=== PATIENT | male | born 1945 | race Caucasian/White ===

== ENCOUNTER 2021-09-09 11:43 | Inpatient (IN) ==
--- NOTE | 2021-09-09 12:30 | XRay Report ---
CLINICAL INFORMATION: Trauma COMPARISON: None. TECHNIQUE: PA and Lateral views FINDINGS: The heart size, mediastinum and pulmonary vessels are unremarkable. COPD noted with minor bibasilar fibrosis or atelectasis. There are no effusions. The bones and soft tissues are within normal limits. IMPRESSION: COPD. No acute posttraumatic change Interpreted and Authenticated by: Schuyler Mejia 09/09/21
--- NOTE | 2021-09-09 12:32 | XRay Report ---
CLINICAL INFORMATION: COMPARISON: None. FINDINGS: Mildly comminuted acute intertrochanteric fracture right hip is appreciated. Distal femoral metaphyseal fragment displaced 5 mm anteriorly with respect to the femoral neck. Mild degenerative change seen in both hips with chondrocalcinosis in the femoral head cartilages. SI joints show mild degeneration. Soft tissues show mild ileus pattern. Soft tissue swelling over the fracture site appreciated. IMPRESSION: Mildly displaced acute intertrochanteric fracture of the right hip. Chondrocalcinosis of both femoral head cartilages. Interpreted and Authenticated by: Schuyler Mejia 09/09/21
[2021-09-09 12:33] LABS: Basophils # (Auto) 0.04 K/mcL (0.00-0.30); Basophils % (Auto) 0.3 % (0.0-2.0); Eosinophils # (Auto) 0.01 K/mcL (0.00-0.70); Eosinophils % (Auto) 0.1 % (0.0-7.0); Hematocrit 34.5 % (40.1-51.0); Hemoglobin 12.3 g/dL (13.7-17.5); Lymphocytes # (Auto) 0.97 K/mcL (1.50-4.80); Lymphocytes % (Auto) 6.4 % (15.5-49.0); Mean Corpuscular HGB Conc 35.7 g/dL (31.0-36.0); Mean Platelet Volume 9.6 fL (7.4-10.4); Monocytes # (Auto) 1.27 K/mcL (0.10-0.90); Monocytes % (Auto) 8.3 % (1.0-12.0); Neutrophils % (Auto) 84.9 % (38.0-78.0); Platelet Count 375 K/mcL (140-440); RBC 3.71 M/mcL (4.63-6.08); Red Cell Distribution Width 12.6 % (11.5-14.5); WBC 15.3 K/mcL (4.5-11.0)
--- NOTE | 2021-09-09 12:51 | Emergency Department Note ---
Lower Extremity Injury HPI General Chief Complaint: Extremity Injury, Lower Stated Complaint: right hip pain, fell out of chair 6 days ago Time Seen by Provider: 09/09/21 11:56 Source: patient and EMS Mode of arrival: EMS History of Present Illness HPI Narrative: Narrative: 75-year-old male presents the emergency department complaining of right hip pain. Patient states that 6 days ago he was getting out of chair and said he lost his balance and fell said it was a mechanical fall as he tripped on some fell onto his right hip was able to get himself and back in the chair but has not moved since. He states he has been having family bring him food but otherwise has had a hard time caring for himself. He states that he has been doing with the pain hoping it would heal on its own but today the pain just got worse so decided to come here via ambulance. He did receive fentanyl by EMS for pain control which did seem to help. He did not is denying any other symptoms he did not hit his head did not lose consciousness remembers the entire event. Related Data Allergies Allergy/AdvReac Type Severity Reaction Status Date / Time No Known Drug Allergies Allergy Unverified 02/12/18 23:21 Review of Systems ROS ROS Narrative: Narrative: All systems ED: reviewed and negative except as stated. [facility] Narrative Patient History Narrative: Narrative: Medical/Surgical/Family History All Active Problems (Updated 09/09/21 @ 12:51 by Kenyon Mcnulty DO) Alcohol intoxication (Acute) Closed intertrochanteric fracture of right femur (Acute) Social History Smoking Status: Current every day smoker Exam Narrative Narrative: Narrative: Vital signs noted General: Awake. Alert. No distress. Skin: Warm. Dry. No rash. HEENT: NCAT. PERRL. EOMI. No conjunctivitis. No nystagmus. No pharyngitis. Membranes moist. Neck: No PTP. Good ROM. No meningeal signs. No stridor. No thyromegaly. No JVD. Cardiovascular: RRR. No murmur. No rubs. No gallops. Respiratory: No respiratory distress. Breath sounds equal. Lungs clear. Gastrointestinal: Abdomen soft. No tenderness. No distention. Normal bowel sounds. No palpable organomegaly or masses. Back: No deformity. No CVAT. Musculoskeletal: Pain with palpation to the right hip he has 2+ pedal pulses bilaterally with normal sensation throughout. No tenderness. No swelling. No erythema. No edema. Good peripheral pulses x 4 Lymphatic: No palpable adenopathy. Neurological: No focal neurological deficits observed. Course Vital Signs Vital signs: Vital Signs Temperature 98.2 F 09/09/21 11:49 Pulse Rate 90 09/09/21 11:49 Respiratory Rate 20 09/09/21 11:49 Blood Pressure 198/66 09/09/21 11:49 Pulse Oximetry (%) 88 L 09/09/21 11:49 Temperature 98.2 F 09/09/21 11:49 Pulse Rate 89 09/09/21 12:35 Respiratory Rate 20 09/09/21 11:49 Blood Pressure 161/82 09/09/21 12:32 Pulse Oximetry (%) 99 09/09/21 12:35 [facility] MDM Narrative Medical decision making narrative: Narrative: Patient seen as he did have a fall 6 days ago. There is no reason to do further advanced imaging of the brain and the head as he states been doing well sent did not hit his head did not lose consciousness. Pain is well controlled the fe ntanyl that EMS gave. X-ray was done of the right hip does show an intertrochanteric right femur fracture. I spoke with Dr. Vidal the orthopedic surgeon who recommends admission to the hospitalist and he will see the patient in consultation do surgery possibly later today. Because he was sitting down I went ahead and did get a CK which is still pending as well as basic labs for admission. Patient will be admitted to the hospitalist service with Dr. Vidal seeing the patient in consultation. Lab Data Result diagrams: 09/09/21 11:58 09/09/21 11:58 Labs: Lab Results 09/09/21 Range/Units 11:58 WBC 15.3 H (4.5-11.0) K/mcL RBC 3.71 L (4.63-6.08) M/mcL Hgb 12.3 L (13.7-17.5) g/dL Hct 34.5 L (40.1-51.0) % MCV 93.0 (80.0-100.0) fL MCH 33.2 (26.0-34.0) pg MCHC 35.7 (31.0-36.0) g/dL RDW 12.6 (11.5-14.5) % Plt Count 375 (140-440) K/mcL MPV 9.6 (7.4-10.4) fL Neut % (Auto) 84.9 H (38.0-78.0) % Lymph % (Auto) 6.4 L (15.5-49.0) % Cole % (Auto) 8.3 (1.0-12.0) % Eos % (Auto) 0.1 (0.0-7.0) % Baso % (Auto) 0.3 (0.0-2.0) % Lymph # (Auto) 0.97 L (1.50-4.80) K/mcL Cole # (Auto) 1.27 H (0.10-0.90) K/mcL Eos # (Auto) 0.01 (0.00-0.70) K/mcL Baso # (Auto) 0.04 (0.00-0.30) K/mcL Absolute Neutrophils 12.96 H (1.80-8.00) K/mcL ED POC Tests ED POC Tests: AMINA - SARS Antigen Negative Discharge Plan Patient/Caregiver Discharge Instructions Pt seen by AIRCRAFT ENGINE MECHANIC SUPERVISOR/PA only: No Clinical Impression: Closed intertrochanteric fracture of right femur Patient Disposition: Xfer As Inpt ([facility]) Condition: Fair
[2021-09-09 12:54] LABS: Blood Urea Nitrogen 17 mg/dL (8-23); Calcium 8.9 mg/dL (8.6-10.4); Carbon Dioxide 30 mmol/L (22-30); Chloride 92 mmol/L (96-108); Creatine Kinase 260 U/L (24-195); Glomerular Filtration Rate 99; Glucose 122 mg/dL (70-105)
[2021-09-09] MEDS ORDERED: HYDROmorphone 1 MG/ML SYRINGE IV PRN ×2 (14:27→15:42)
[2021-09-09] MEDS ORDERED: ceFAZolin 2 GM in DEXTROSE 5% IN WATER 50 ML IV SCH ×2 (14:30→18:15)
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
[2021-09-09] MEDS ORDERED: ACETAMINOPHEN 325 MG TABLET PO PRN (15:42)
[2021-09-09] MEDS ORDERED: ONDANSETRON 4 MG/2 ML VIAL IV PRN ×2 (15:42→17:41)
[2021-09-09] MEDS ORDERED: ZOLPIDEM 5 MG TABLET PO PRN (15:42)
[2021-09-09] MEDS ORDERED: IPRATROPIUM/ALBUTEROL 3 ML AMPUL.NEB NEB PRN ×2 (15:42→17:41)
[2021-09-09] MEDS: 0.9 % SODIUM CHLORIDE 1,000 ML IV SCH (15:47)
[2021-09-09] MEDS ORDERED: SCOPOLAMINE 1 PATCH PATCH TOPICAL PRN (16:27)
--- NOTE | 2021-09-09 17:00 | Orthopedic Consult Note ---
HPI Data of Consult Consult date: 09/09/21 Consult Narrative Patient Information: Note initiated : 09/09/21 at 4:53 pm Service Date, if different from initiated Date: [] Patient: Shubham Alcazar a 75 y/o M admitted on 09/09/21 for right hip pain, fell o ut of chair 6 days ago. Chief Complaint: [right Hip pain status post fall] Mr. Alcazar is a 75 year old Male who suffered a ground level mechanical fall 6 days ago was when he was trying to lock his front door, his right leg just gave out and he fell. He denies any loss of consciousness. He denies any chest pain or palpitations. He denies any lightheadedness or confusions. He denies any shortness of breath. His family is set him up on the chair but he was unable to get up from the chair in the past 6 days so he did all his daily activities including urination and defecation's on the chair. His family finally called EMS to send the patient to our ER for further evaluations. Hip x-ray showing mildly displaced acute intertrochanteric fracture of the right hip. He is complaining of 10 out of 10 sharp pain of the right thigh with radiations to his entire right lower extremities. Chief complaint: Right hip pain status post fall cc:: CC: Clinton Mcrae MD Review of Systems All systems: reviewed and no additional remarkable complaints except as stated PFSH PFSH All Active Problems Anemia, normocytic normochromic (Acute) Alcohol intoxication (Acute) Closed intertrochanteric fracture of right femur (Acute) MEDS/ALLERGIES Home Medications and Allergies Home Medications Medication Instructions Recorded Confirmed Type nitroglycerin 0.4 mg sublingual 0.4 mg SUBLINGUAL Q15MIN PRN 09/09/21 09/09/21 History tablet Allergies Allergy/AdvReac Type Severity Reaction Status Date / Time No Known Drug Allergies Allergy Unverified 02/12/18 23:21 Physical Examination Narrative Narrative: Narrative: A/P Narrative A/P Narrative: On exam patient is seated in bed in no acute distress lungs are equal clear bilaterally heart normal rate and rhythm. Head, neck, chest, abdomen, bilateral upper extremities and left side pelvis and lower extremity Pupils are PERRLA, mucous membranes are moist. Bilateral upper extremities nontender to palpation exhibit normal range of motion and strength of the right hip there is tenderness to palpation and with any range of motion. Options were presented to the patient including nonsurgical and surgical options nonsurgical option carries a risk of increased pain, increased risk of injury to adjacent structures including nerves and blood vessels, loss of range of motion and ambulation. Surgical option consisting of right hip TFNA hip nail. At this time patient is interested in surgery. Plan is for right hip TFNA hip nail to take place him emergently with Dr. Vidal orthopedic surgeon in [facility]. Surgical risks were Explained to the patient including but not limited to: Pain, bleeding, infection, injury to adjacent structures including nerves and blood vessels, implant failure, need for further surgery, stroke risk, cardiac complications including heart attack or WI, ulnar complications including pneumonia or pulmonary embolism, anesthesia reactions and . Patient understands these risks and wishes to proceed with surgery. Time Spent With Patient Time: Total time spent is greater than 50% in coordination of care (as documented) at patient's floor/unit and/or counseling patient:
[2021-09-09] MEDS ORDERED: MAGNESIUM SULFATE 2 GM/50 ML BAG IV ONE (17:15)
[2021-09-09] MEDS ORDERED: KETAMINE 50 MG/ML Syringe (ANEST) IV ONE (17:15)
[2021-09-09] MEDS ORDERED: PROPOFOL 200 MG/20 ML VIAL IV ONE (17:15)
[2021-09-09] MEDS ORDERED: LIDOCAINE HCL/PF 100 MG/5 ML SYRINGE IV ONE (17:15)
[2021-09-09] MEDS ORDERED: fentaNYL 100 MCG/2 ML VIAL IV ONE (17:15)
[2021-09-09] MEDS ORDERED: ONDANSETRON 4 MG/2 ML VIAL ONE (17:15)
[2021-09-09] MEDS ORDERED: DEXAMETHASONE 10 MG/ML VIAL ONE (17:15)
[2021-09-09] MEDS ORDERED: PROMETHAZINE 25 MG/ML VIAL IV PRN (17:41)
[2021-09-09] MEDS ORDERED: LACTATED RINGERS 250 ML IV PRN (17:41)
[2021-09-09] MEDS ORDERED: NALOXONE HCL 0.4 MG/ML VIAL IV PRN (17:41)
[2021-09-09] MEDS ORDERED: MEPERIDINE 25 MG/ML VIAL IV PRN (17:41)
[2021-09-09] MEDS ORDERED: diphenhydrAMINE 50 MG/ML VIAL IV PRN (17:41)
[2021-09-09] MEDS ORDERED: ACETAMINOPHEN 1,000 MG/100 ML BAG IV ONE (17:41)
[2021-09-09] MEDS ORDERED: LACTATED RINGERS 1,000 ML IV SCH (17:45)
--- NOTE | 2021-09-09 17:59 | General Surgery Procedure Note ---
Date of procedure: Note initiated : 09/09/21 at 5:56 pm Service Date, if different from initiated Date: [] Pre-op diagnosis: right hip intertrochanteric fracture Post-op diagnosis: same Procedure: right hip cephalomedullary nail Findings: IT fx Anesthesia: DALILA Surgeon: Schuyler Vidal Molten Iron Pourer: Yonis Betts Estimated blood loss: 100 Pathology: none sent Condition: stable Disposition: PACU
--- NOTE | 2021-09-09 18:01 | Discharge Plan ---
DC Instructions-General Patient Instructions Dressing Care: May shower in 2 days Discharge Plan Patient/Caregiver Discharge Instructions Activity: ambulate only with your walker and as per physical therapy Diet: Regular Diet Prescriptions: No Action nitroglycerin 0.4 mg tablet, sublingual 0.4 mg sublingual Q15MIN PRN (Reason: Chest Pain) 0RF Follow Up Plan Follow up with: Schuyler Vidal MD [Physician] - Patient Disposition: Xfer SNF Prognosis: Fair Rehab Potential: Good I certify that the patient requires SNF services: Yes Overall status at discharge: patient is progressing back to baseline Discharge Orders: Discharge Order (Routine); Ordered 09/09/21 Ordered By: Schuyler Vidal Discharge Comment: cc right hip fx s/p nail
[2021-09-09] MEDS ORDERED: BISACODYL 10 MG SUPP.RECT PR PRN (18:03)
[2021-09-09] MEDS ORDERED: POLYETHYLENE GLYCOL 3350 17 GM PACKET PO PRN (18:03)
[2021-09-09] MEDS ORDERED: TRANEXAMIC ACID 1,000 MG/10 ML VIAL IV ONE (18:03)
[2021-09-09] MEDS ORDERED: FLEETS ADULT ENEMA PR PRN (18:03)
[2021-09-09] MEDS ORDERED: MAGNESIUM HYDROXIDE 30 ML ORAL.SUSP PO PRN (18:03)
[2021-09-09] MEDS ORDERED: ONDANSETRON 4 MG ODT TABLET SL PRN (18:03)
[2021-09-09] MEDS ORDERED: BENZOCAINE/MENTHOL 1 LOZENGE PO PRN (18:03)
[2021-09-09] MEDS: fentaNYL 100 MCG/2 ML VIAL IV PRN ×2 (18:15→18:20)
--- NOTE | 2021-09-09 18:39 | XRay Report ---
CLINICAL INFORMATION: Orif of right distal femur fcracture COMPARISON: None. FINDINGS: Digital images from the OR show intertrochanteric fracture reduced in near anatomic alignment transfixed by gamma nail. Chondrocalcinosis seen in the right right femoral head cartilage. IMPRESSION: ORIF right intertrochanteric fracture near-anatomic alignment Interpreted and Authenticated by: Schuyler Mejia 09/09/21
[2021-09-09] MEDS ORDERED: TRANEXAMIC ACID 1,000 MG/10 ML VIAL ONE (18:53)
[2021-09-09] MEDS: LACTATED RINGERS 1,000 ML IV SCH (20:15)
[2021-09-09] MEDS: ASPIRIN 81 MG TAB.CHEW PO SCH (20:58)
[2021-09-09] MEDS: SENNOSIDES 1 TABLET PO SCH (20:58)
[2021-09-09] MEDS ORDERED: SENNOSIDES 1 TABLET PO SCH (21:00)
[2021-09-09] MEDS ORDERED: DOCUSATE SODIUM 100 MG CAPSULE PO SCH (21:00)
[2021-09-09] MEDS: 0.9 % SODIUM CHLORIDE 10 ML SYRINGE IV SCH (21:00)
[2021-09-09] MEDS: DOCUSATE SODIUM 100 MG CAPSULE PO SCH (21:00)
[2021-09-10] MEDS: ceFAZolin 1 GM VIAL IV SCH ×2 (00:18→09:09)
[2021-09-10] MEDS: 0.9 % SODIUM CHLORIDE 1,000 ML IV SCH (02:56)
[2021-09-10] MEDS: METHOCARBAMOL 750 MG TABLET PO PRN ×2 (03:11→19:26)
[2021-09-10] MEDS: oxyCODONE/APAP 5/325MG TABLET PO PRN (03:11)
--- NOTE | 2021-09-10 03:22 | XRay Report ---
CLINICAL INFORMATION: ORIF right intertrochanteric fracture COMPARISON: Preoperative films 09/09/2021. FINDINGS: Right intertrochanteric fractures has been reduced to anatomic alignment and transfixed by gamma nail. Chondrocalcinosis present both femoral head cartilages with mild degeneration both SI joints. Soft tissue swelling over the surgical site seen as expected.. IMPRESSION: ORIF intertrochanteric fracture right hip in anatomic alignment Interpreted and Authenticated by: Schuyler Mejia 09/10/21
[2021-09-10] MEDS: LACTATED RINGERS 1,000 ML IV SCH ×3 (04:17→17:44)
[2021-09-10] MEDS: 0.9 % SODIUM CHLORIDE 10 ML SYRINGE IV SCH ×3 (05:56→21:00)
[2021-09-10] MEDS: HYDROcodone/APAP 10/325MG TABLET PO PRN ×4 (07:13→20:57)
[2021-09-10 07:23] LABS: Basophils # (Auto) 0.02 K/mcL (0.00-0.30); Basophils % (Auto) 0.1 % (0.0-2.0); Eosinophils # (Auto) 0.01 K/mcL (0.00-0.70); Eosinophils % (Auto) 0.1 % (0.0-7.0); Hematocrit 32.2 % (40.1-51.0); Hemoglobin 10.7 g/dL (13.7-17.5); Lymphocytes # (Auto) 0.85 K/mcL (1.50-4.80); Lymphocytes % (Auto) 5.3 % (15.5-49.0); Mean Cell Volume 96.4 fL (80.0-100.0); Mean Corpuscular HGB Conc 33.2 g/dL (31.0-36.0); Monocytes # (Auto) 1.45 K/mcL (0.10-0.90); Neutrophils % (Auto) 85.5 % (38.0-78.0); Platelet Count 349 K/mcL (140-440); RBC 3.34 M/mcL (4.63-6.08); Red Cell Distribution Width 12.7 % (11.5-14.5); WBC 16.1 K/mcL (4.5-11.0)
[2021-09-10 07:53] LABS: Creatine Kinase 185 U/L (24-195)
[2021-09-10 08:01] LABS: ALT/SGPT 16 U/L (<40); AST/SGOT 24 U/L (<40); Albumin 3.5 gm/dL (3.2-5.2); Albumin/Globulin Ratio 1.3 (1.0-2.3); Alkaline Phosphatase 76 U/L (39-117); Bilirubin,Total 1.2 mg/dL (0.1-1.0); Blood Urea Nitrogen 21 mg/dL (8-23); Calcium 8.2 mg/dL (8.6-10.4); Carbon Dioxide 30 mmol/L (22-30); Chloride 88 mmol/L (96-108); Globulin 2.6 gm/dL (2.2-3.7); Glomerular Filtration Rate 93; Glucose 141 mg/dL (70-105)
--- NOTE | 2021-09-10 08:39 | Operative Note ---
DATE OF OPERATION: 09/09/2021 PREOPERATIVE DIAGNOSIS: Intertrochanteric fracture, right hip. POSTOPERATIVE DIAGNOSIS: Intertrochanteric fracture, right hip. PROCEDURE: Right hip cephalomedullary nailing. SURGEON: Schuyler Vidal M.D. SOLID FIBER PASTER OPERATOR SURGEON: Niko Betts PA-C. The PA's assistance was required for the safe and efficient completion of the entire case. This provider's expertise and technical skill were required throughout the case. The PA assisted with preoperative coordination, intraoperative retraction, wound closure, dressing and splint application, as well as postoperative documentation and care coordination. ANESTHESIA: Spinal with LMA assist. ESTIMATED BLOOD LOSS: 100 mL. COMPLICATIONS: None noted. SPECIMENS REMOVED: None. DRAINS: None. IMPLANTS: Synthes 11 x 130 titanium cannulated TFNA 170 mm sterile Synthes helical blade 100 x 1 mm 5.0 mm screw, 38 mm length INDICATIONS: The patient fell and was unable to ambulate. Radiographs have confirmed a displaced intertrochanteric fracture of the proximal femur. The patient was admitted to the hospital and underwent medical clearance. After a long discussion about treatment options, the patient elected to proceed with cephalomedullary nailing. The risks and benefits were discussed with the patient in detail including, but not limited to, the risks of anesthesia, problems with the heart or lungs related to anesthesia, infection, compromise or injury to the nerves and blood vessels, deep venous thrombosis, pulmonary embolism, pneumonia, continued pain after surgery, worsening pain or symptoms after surgery, swelling, loss of motion, malunion, non-union, leg length discrepancy, and need for repeat surgery. DESCRIPTION OF PROCEDURE: The patient was seen in pre-anesthesia waiting room where all questions were answered and the correct side and site were identified and marked. The patient was then brought to the operating room and administered the anesthetic, tranexamic acid, and given pre-operative antibiotics. A timeout was then called. The patient was placed on the fracture table with all prominences well padded. The leg was brought into traction, adduction, and slight internal rotation. We used c-arm with orthogonal views to confirm anatomic reduction of the fracture. The extremity was prepped and draped in the usual sterile fashion. C-arm was again used to confirm landmarks. A percutaneous incision was created about 4 centimeters proximal to the greater trochanter. A guide pin was placed into the femoral canal under fluoroscopy after we found the appropriate starting position along the medial boarder of the trochanter and just anterior to the center position laterally. We placed a protector sleeve proximally and over-reamed with the 17 mm proximal reamer. Next, we changed out the guide pin for a ball-tipped guide nereida and placed it into the femoral canal. Position was confirmed with the c-arm. The 170 mm Synthes TFNA nail was then placed with appropriate depth and version using the percutaneous targeting guide. The lateral helical blade sleeve was placed in the targeting guide and a second small percutaneous incision was made to allow the sleeve access to the lateral cortex of the femur. We drilled the guide pin into the center center position of the femoral head confirmed with fluoroscopy. We measured and drilled over the guide pin. The helical blade was then inserted and we compressed the fracture. The targeting sleeve was again used to place a percutaneous 5.0 mm screw distally in the static hole. It was drilled, measured, and placed using c-arm guidance. Traction was removed on the hip. The targeting device was then removed and final radiographs were taken confirming reduction of the fracture and adequate placement of all hardware. We thoroughly irrigated the three percutaneous incisions and closed the deep fascia with #0 Vicryl. We closed the subcutaneous tissue and skin in layers out to mark in the skin. A sterile pressure dressing was applied. All needle and sponge counts were correct. The patient was transferred to the recovery room in stable condition. BAILEE:earl Job ID: [id number] Doc ID: [id number] Sabiha Vidal MD
[2021-09-10] MEDS: DOCUSATE SODIUM 100 MG CAPSULE PO SCH ×2 (09:01→20:57)
[2021-09-10] MEDS: ASPIRIN 81 MG TAB.CHEW PO SCH ×2 (09:01→20:57)
[2021-09-10] MEDS: NICOTINE 21 MG PATCH TOPICAL SCH (11:15)
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
--- NOTE | 2021-09-10 14:49 | Orthopedic Progress Note ---
SUBJECTIVE Subjective Patient information: Note initiated : 09/10/21 at 2:44 pm Service Date, if different from initiated Date: [] Patient: Shubham Alcazar 75 y/o M admitted on 09/09/21 for right hip pain, fell out of chair 6 days ago. Chief Complaint: [s/p right hip nail ] Principal diagnosis: POD 1 s/p right hip nail Pertinent ROS: 10 points reviewed and are negative except where mentioned Constitutional Vitals: Vital Signs Temp Pulse Resp BP Pulse Ox 97.0 F 85 16 139/79 91 09/10/21 12:00 09/10/21 12:00 09/10/21 12:00 09/10/21 12:00 09/10/21 12:00 Period Temp Pulse Resp BP Sys/Deluna Pulse Ox Last 24 Hr 96.8 F-99.9 F 78-99 14-23 102-177/61-133 91-100 Intake and Output 09/10/21 09/10/21 09/10/21 05:59 13:59 21:59 Intake Total 1000 Output Total 550 Balance 450 Weight 147 lb Patient Weight 09/11/21 05:59 Weight 147 lb Intake & Output: Intake & Output 09/10/21 09/10/21 09/10/21 05:59 13:59 21:59 Intake Total 1000 Output Total 550 Balance 450 Weight 147 lb Intake: IV 1000 Lactated Ringers 1,000 ml @ 125 1000 mls/hr IV .Q8H [facility] Rx#: [id number] Oral 0 Output: Void Amount 550 Other: Meal jello Percent of Meal Consumed 100% Feeding Ability Independent Urine Appearance Clear Urine Color Dark Yellow OBJ DATA Labs CBC & Chem 7: 09/10/21 06:31 09/10/21 06:31 Labs: Abnormal Lab Results 09/10/21 09/10/21 09/09/21 06:31 06:31 11:58 WBC 16.1 H RBC 3.34 L Hgb 10.7 L Hct 32.2 L Neut % (Auto) 85.5 H Lymph % (Auto) 5.3 L Lymph # (Auto) 0.85 L [place] # (Auto) 1.45 H Absolute Neutrophils 13.76 H Sodium 128 L Chloride 88 L 92 L Creatinine 0.6 L Glucose 141 H 122 H Calcium 8.2 L Total Bilirubin 1.2 H Total Creatine Kinase 260 H 09/09/21 11:58 WBC 15.3 H RBC 3.71 L Hgb 12.3 L Hct 34.5 L Neut % (Auto) 84.9 H Lymph % (Auto) 6.4 L Lymph # (Auto) 0.97 L [place] # (Auto) 1.27 H Absolute Neutrophils 12.96 H Sodium Chloride Creatinine Glucose Calcium Total Bilirubin Total Creatine Kinase Meds: Medications Acetaminophen (Acetaminophen 325 Mg Tablet) 650 mg PO Q6HP PRN; Protocol PRN Reason: Per Pain Protocol/Fever > 101 Hydrocodone Bitart/Acetaminophen (Hydrocodone/Apap 10/325mg Tablet) 0 tab PO Q4HP PRN; Protocol PRN Reason: Per Pain Protocol Last Admin: 09/10/21 11:19 Dose: 2 tab Documented by: Albuterol/Ipratropium (Ipratropium/Albuterol 3 Ml Ampul.Neb) 3 ml NEB Q4HRT PRN PRN Reason: Wheezing Aspirin (Aspirin 81 Mg Tab.Chew) 81 mg PO BID [facility] Last Admin: 09/10/21 09:01 Dose: 81 mg Documented by: Bisacodyl (Bisacodyl 10 Mg Supp.Rect) 10 mg [place] Q2-3DAYS PRN PRN Reason: Constipation Docusate Sodium (Docusate Sodium 100 Mg Capsule) 100 mg PO BID [facility] Last Admin: 09/10/21 09:01 Dose: 100 mg Documented by: Hydromorphone HCl (Hydromorphone 1 Mg/Ml Syringe) 1 mg IV Q4HP PRN; Protocol PRN Reason: Per Pain Protocol Last Admin: 09/09/21 23:33 Dose: 1 mg Documented by: Lactated Ringer's (Lactated Ringers) 1,000 mls @ 125 mls/hr IV .Q8H [facility] Last Admin: 09/10/21 12:31 Dose: Not Given Documented by: Magnesium Hydroxide (Magnesium Hydroxide 30 Ml Oral.Susp) 30 ml PO BIDP PRN PRN Reason: Constipation Methocarbamol (Methocarbamol 750 Mg Tablet) 750 mg PO Q6HP PRN PRN Reason: Muscle Spasm Last Admin: 09/10/21 03:11 Dose: 750 mg Documented by: Nicotine (Nicotine 21 Mg Patch) 21 mg TOPICAL DAILY@1000 [facility] Last Admin: 09/10/21 11:15 Dose: 21 mg Documented by: Ondansetron HCl (Ondansetron 4 Mg Odt Tablet) 4 mg SL Q4HP PRN; Protocol PRN Reason: Nausea And Vomiting Oxycodone/Acetaminophen (Oxycodone/Apap 5/325mg Tablet) 1 tab PO Q4HP PRN; Protocol PRN Reason: Per Pain Protocol Last Admin: 09/10/21 03:11 Dose: 1 tab Documented by: Polyethylene Glycol (Polyethylene Glycol 3350 17 Gm Packet) 17 gm PO DAILYP PRN PRN Reason: Constipation Senna (Sennosides 1 Tablet) 2 tab PO HS [facility] Last Admin: 09/09/21 20:58 Dose: 2 tab Documented by: Sodium Biphosphate/Sodium Phosphate (Fleets Adult Enema) 1 dose [place] Q3-4DAYS PRN PRN Reason: Constipation Sodium Chloride (0.9 % Sodium Chloride 10 Ml Syringe) 10 ml IV Q8 [facility] Last Admin: 09/10/21 05:56 Dose: 10 ml Documented by: Throat Lozenges (Benzocaine/Menthol 1 Lozenge) 1 lozenge PO PRN PRN PRN Reason: Sore Throat Zolpidem Tartrate (Zolpidem 5 Mg Tablet) 5 mg PO HSP PRN PRN Reason: Insomnia A/P Narrative A/P Narrative: Patient seen and examined this am. Awake alert, oriented cooperative, eager for discharge. Has expected post-op pain but feels it is well managed on current regimen. Dressing at E clean dry and intact, SCDs and ice pack in place. Both lower extremities are warm well perfused and neuro intact. Has no yet ambulated today PT/OT pain control WB as tolerated w/ walker for assistance Plan is for expected discharge in 1-2 days w/ F/u at [facility] in 10-14 days Time Spent With Patient Time: Total time spent is greater than 50% in coordination of care (as documented) at patient's floor/unit and/or counseling patient:
--- NOTE | 2021-09-10 19:56 | EKG ---
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
[2021-09-10] MEDS: SENNOSIDES 1 TABLET PO SCH (20:57)
[2021-09-11] MEDS: HYDROcodone/APAP 10/325MG TABLET PO PRN ×5 (02:15→23:12)
[2021-09-11] MEDS: 0.9 % SODIUM CHLORIDE 10 ML SYRINGE IV SCH ×3 (05:00→20:56)
[2021-09-11] MEDS: oxyCODONE/APAP 5/325MG TABLET PO PRN ×2 (05:01→09:20)
[2021-09-11] MEDS: METHOCARBAMOL 750 MG TABLET PO PRN ×2 (05:01→23:11)
[2021-09-11 07:14] LABS: Basophils # (Auto) 0.05 K/mcL (0.00-0.30); Basophils % (Auto) 0.3 % (0.0-2.0); Eosinophils # (Auto) 0.01 K/mcL (0.00-0.70); Eosinophils % (Auto) 0.1 % (0.0-7.0); Hematocrit 28.3 % (40.1-51.0); Hemoglobin 9.4 g/dL (13.7-17.5); Lymphocytes # (Auto) 3.15 K/mcL (1.50-4.80); Lymphocytes % (Auto) 20.1 % (15.5-49.0); Mean Cell Volume 97.6 fL (80.0-100.0); Mean Corpuscular HGB Conc 33.2 g/dL (31.0-36.0); Mean Platelet Volume 9.9 fL (7.4-10.4); Monocytes # (Auto) 1.63 K/mcL (0.10-0.90); Monocytes % (Auto) 10.4 % (1.0-12.0); Neutrophils % (Auto) 69.1 % (38.0-78.0); Platelet Count 335 K/mcL (140-440); WBC 15.6 K/mcL (4.5-11.0)
--- NOTE | 2021-09-11 07:28 | Orthopedic Progress Note ---
SUBJECTIVE Subjective Patient information: Note initiated : 09/11/21 at 7:23 am Service Date, if different from initiated Date: [] Patient: Shubham Alcazar 75 y/o M admitted on 09/09/21 for right hip pain, fell out of chair 6 days ago. Chief Complaint: [Status post right IM hip nail] Principal diagnosis: POD 2 s/p right hip nail Pertinent ROS: 10 points reviewed and are negative except for mentioned Constitutional Vitals: Vital Signs Temp Pulse Resp BP Pulse Ox 98.2 F 93 H 16 133/68 91 09/11/21 03:43 09/11/21 03:43 09/11/21 03:43 09/11/21 03:43 09/11/21 03:43 Period Temp Pulse Resp BP Sys/Deluna Pulse Ox Last 24 Hr 96.8 F-98.2 F 80-93 16-16 120-145/65-79 90-93 Intake and Output 09/10/21 09/11/21 09/11/21 21:59 05:59 13:59 Intake Total 1989 225 Output Total 800 650 Balance 1190 -425 Weight 153 lb 6.4 oz Intake & Output: Intake & Output 09/10/21 09/11/21 09/11/21 21:59 05:59 13:59 Intake Total 1989 225 Output Total 800 650 Balance 1190 -425 Weight 153 lb 6.4 oz Intake: Oral 1989 Output: Void Amount 800 650 Other: Meal Lunch Percent of Meal Consumed 75% Feeding Ability Independent Urine Appearance Clear Urine Color Bright Yellow Urine Odor Normal OBJ DATA Labs CBC & Chem 7: 09/11/21 05:49 09/10/21 06:31 Labs: Abnormal Lab Results 09/11/21 09/10/21 09/10/21 05:49 06:31 06:31 WBC 15.6 H 16.1 H RBC 2.90 L 3.34 L Hgb 9.4 L 10.7 L Hct 28.3 L 32.2 L Neut % (Auto) 85.5 H Lymph % (Auto) 5.3 L Lymph # (Auto) 0.85 L [place] # (Auto) 1.63 H 1.45 H Absolute Neutrophils 10.80 H 13.76 H Sodium 128 L Chloride 88 L Creatinine Glucose 141 H Calcium 8.2 L Total Bilirubin 1.2 H Total Creatine Kinase 09/09/21 09/09/21 11:58 11:58 WBC 15.3 H RBC 3.71 L Hgb 12.3 L Hct 34.5 L Neut % (Auto) 84.9 H Lymph % (Auto) 6.4 L Lymph # (Auto) 0.97 L [place] # (Auto) 1.27 H Absolute Neutrophils 12.96 H Sodium Chloride 92 L Creatinine 0.6 L Glucose 122 H Calcium Total Bilirubin Total Creatine Kinase 260 H Meds: Medications Acetaminophen (Acetaminophen 325 Mg Tablet) 650 mg PO Q6HP PRN; Protocol PRN Reason: Per Pain Protocol/Fever > 101 Hydrocodone Bitart/Acetaminophen (Hydrocodone/Apap 10/325mg Tablet) 0 tab PO Q4HP PRN; Protocol PRN Reason: Per Pain Protocol Last Admin: 09/11/21 02:15 Dose: 2 tab Documented by: Albuterol/Ipratropium (Ipratropium/Albuterol 3 Ml Ampul.Neb) 3 ml NEB Q4HRT PRN PRN Reason: Wheezing Aspirin (Aspirin 81 Mg Tab.Chew) 81 mg PO BID [facility] Last Admin: 09/10/21 20:57 Dose: 81 mg Documented by: Bisacodyl (Bisacodyl 10 Mg Supp.Rect) 10 mg [place] Q2-3DAYS PRN PRN Reason: Constipation Docusate Sodium (Docusate Sodium 100 Mg Capsule) 100 mg PO BID [facility] Last Admin: 09/10/21 20:57 Dose: 100 mg Documented by: Hydromorphone HCl (Hydromorphone 1 Mg/Ml Syringe) 1 mg IV Q4HP PRN; Protocol PRN Reason: Per Pain Protocol Last Admin: 09/09/21 23:33 Dose: 1 mg Documented by: Magnesium Hydroxide (Magnesium Hydroxide 30 Ml Oral.Susp) 30 ml PO BIDP PRN PRN Reason: Constipation Methocarbamol (Methocarbamol 750 Mg Tablet) 750 mg PO Q6HP PRN PRN Reason: Muscle Spasm Last Admin: 09/11/21 05:01 Dose: 750 mg Documented by: Nicotine (Nicotine 21 Mg Patch) 21 mg TOPICAL DAILY@1000 [facility] Last Admin: 09/10/21 11:15 Dose: 21 mg Documented by: Ondansetron HCl (Ondansetron 4 Mg Odt Tablet) 4 mg SL Q4HP PRN; Protocol PRN Reason: Nausea And Vomiting Oxycodone/Acetaminophen (Oxycodone/Apap 5/325mg Tablet) 1 tab PO Q4HP PRN; Protocol PRN Reason: Per Pain Protocol Last Admin: 09/11/21 05:01 Dose: 1 tab Documented by: Polyethylene Glycol (Polyethylene Glycol 3350 17 Gm Packet) 17 gm PO DAILYP PRN PRN Reason: Constipation Senna (Sennosides 1 Tablet) 2 tab PO HS [facility] Last Admin: 09/10/21 20:57 Dose: 2 tab Documented by: Sodium Biphosphate/Sodium Phosphate (Fleets Adult Enema) 1 dose [place] Q3-4DAYS PRN PRN Reason: Constipation Sodium Chloride (0.9 % Sodium Chloride 10 Ml Syringe) 10 ml IV Q8 [facility] Last Admin: 09/11/21 05:00 Dose: 10 ml Documented by: Throat Lozenges (Benzocaine/Menthol 1 Lozenge) 1 lozenge PO PRN PRN PRN Reason: Sore Throat Zolpidem Tartrate (Zolpidem 5 Mg Tablet) 5 mg PO HSP PRN PRN Reason: Insomnia A/P Narrative A/P Narrative: Patient seen and examined this a.m. awake, alert, oriented and answers questions appropriately. Has some expected postoperative discomfort but feels is well-managed on current regimen. Dressing at right lower extremity has some strikethrough we'll order dressing change today. Both lower extremities are warm, well perfused and neurovascularly intact. Intact ankle dorsi and plantar flexion against resistance. Denies ambulation as of yet, but endorses he would like to today with physical therapy. Will continue PT/OT, pain control Weightbearing as tolerated Plan is for expected discharge to SNF, With follow-up at [place] [facility] in 10-14 days. Time Spent With Patient Time: Total time spent is greater than 50% in coordination of care (as documented) at patient's floor/unit and/or counseling patient:
[2021-09-11] MEDS: DOCUSATE SODIUM 100 MG CAPSULE PO SCH ×2 (07:57→21:23)
[2021-09-11] MEDS: ASPIRIN 81 MG TAB.CHEW PO SCH ×2 (07:57→21:23)
[2021-09-11 08:09] LABS: Blood Urea Nitrogen 23 mg/dL (8-23); Calcium 8.2 mg/dL (8.6-10.4); Carbon Dioxide 31 mmol/L (22-30); Chloride 92 mmol/L (96-108); Glomerular Filtration Rate 99; Glucose 102 mg/dL (70-105)
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
[2021-09-11] MEDS: NICOTINE 21 MG PATCH TOPICAL SCH (09:20)
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
[2021-09-11] MEDS: SENNOSIDES 1 TABLET PO SCH (21:23)
[2021-09-12] MEDS: HYDROcodone/APAP 10/325MG TABLET PO PRN (05:01)
[2021-09-12] MEDS: 0.9 % SODIUM CHLORIDE 10 ML SYRINGE IV SCH (05:03)
--- NOTE | 2021-09-12 06:32 | Orthopedic Progress Note ---
SUBJECTIVE Subjective Patient information: Note initiated : 09/12/21 at 6:21 am Service Date, if different from initiated Date: [] Patient: Shubham Alcazar 75 y/o M admitted on 09/09/21 for right hip pain, fell out of chair 6 days ago. Chief Complaint: [s/p right IM hip nail ] Principal diagnosis: POD 3 s/p right hip nail Pertinent ROS: 10 points reviewed and are negative except where mentioned Constitutional Vitals: Vital Signs Temp Pulse Resp BP Pulse Ox 97.6 F 89 18 128/71 90 09/12/21 03:12 09/12/21 03:12 09/12/21 03:12 09/12/21 03:12 09/12/21 03:12 Period Temp Pulse Resp BP Sys/Deluna Pulse Ox Last 24 Hr 97.3 F-98.1 F 81-90 -22 100-140/55-72 90-90 Intake and Output 09/11/21 09/12/21 09/12/21 21:59 05:59 13:59 Intake Total 1440 200 Output Total 550 850 Balance 890 -650 Weight 153 lb 12.8 oz Intake & Output: Intake & Output 09/11/21 09/12/21 09/12/21 21:59 05:59 13:59 Intake Total 1440 200 Output Total 550 850 Balance 890 -650 Weight 153 lb 12.8 oz Intake: Oral 1440 200 Output: Void Amount 550 850 Other: Urine Appearance Clear Clear Urine Color Bright Yellow Bright Yellow Urine Odor Normal OBJ DATA Labs CBC & Chem 7: 09/11/21 05:49 09/11/21 05:48 Labs: Abnormal Lab Results 09/11/21 09/11/21 09/10/21 05:49 05:48 06:31 WBC 15.6 H RBC 2.90 L Hgb 9.4 L Hct 28.3 L Neut % (Auto) Lymph % (Auto) Lymph # (Auto) [place] # (Auto) 1.63 H Absolute Neutrophils 10.80 H Sodium 132 L 128 L Chloride 92 L 88 L Carbon Dioxide 31 H Creatinine 0.6 L Glucose 141 H Calcium 8.2 L 8.2 L Total Bilirubin 1.2 H Total Creatine Kinase 09/10/21 09/09/21 09/09/21 06:31 11:58 11:58 WBC 16.1 H 15.3 H RBC 3.34 L 3.71 L Hgb 10.7 L 12.3 L Hct 32.2 L 34.5 L Neut % (Auto) 85.5 H 84.9 H Lymph % (Auto) 5.3 L 6.4 L Lymph # (Auto) 0.85 L 0.97 L [place] # (Auto) 1.45 H 1.27 H Absolute Neutrophils 13.76 H 12.96 H Sodium Chloride 92 L Carbon Dioxide Creatinine 0.6 L Glucose 122 H Calcium Total Bilirubin Total Creatine Kinase 260 H Meds: Medications Acetaminophen (Acetaminophen 325 Mg Tablet) 650 mg PO Q6HP PRN; Protocol PRN Reason: Per Pain Protocol/Fever > 101 Hydrocodone Bitart/Acetaminophen (Hydrocodone/Apap 10/325mg Tablet) 0 tab PO Q4HP PRN; Protocol PRN Reason: Per Pain Protocol Last Admin: 09/12/21 05:01 Dose: 2 tab Documented by: Albuterol/Ipratropium (Ipratropium/Albuterol 3 Ml Ampul.Neb) 3 ml NEB Q4HRT PRN PRN Reason: Wheezing Aspirin (Aspirin 81 Mg Tab.Chew) 81 mg PO BID [facility] Last Admin: 09/11/21 21:23 Dose: 81 mg Documented by: Bisacodyl (Bisacodyl 10 Mg Supp.Rect) 10 mg [place] Q2-3DAYS PRN PRN Reason: Constipation Docusate Sodium (Docusate Sodium 100 Mg Capsule) 100 mg PO BID [facility] Last Admin: 09/11/21 21:23 Dose: 100 mg Documented by: Hydromorphone HCl (Hydromorphone 1 Mg/Ml Syringe) 1 mg IV Q4HP PRN; Protocol PRN Reason: Per Pain Protocol Last Admin: 09/09/21 23:33 Dose: 1 mg Documented by: Magnesium Hydroxide (Magnesium Hydroxide 30 Ml Oral.Susp) 30 ml PO BIDP PRN PRN Reason: Constipation Methocarbamol (Methocarbamol 750 Mg Tablet) 750 mg PO Q6HP PRN PRN Reason: Muscle Spasm Last Admin: 09/11/21 23:11 Dose: 750 mg Documented by: Nicotine (Nicotine 21 Mg Patch) 21 mg TOPICAL DAILY@1000 [facility] Last Admin: 09/11/21 09:20 Dose: 21 mg Documented by: Ondansetron HCl (Ondansetron 4 Mg Odt Tablet) 4 mg SL Q4HP PRN; Protocol PRN Reason: Nausea And Vomiting Oxycodone/Acetaminophen (Oxycodone/Apap 5/325mg Tablet) 1 tab PO Q4HP PRN; Protocol PRN Reason: Per Pain Protocol Last Admin: 09/11/21 09:20 Dose: 1 tab Documented by: Polyethylene Glycol (Polyethylene Glycol 3350 17 Gm Packet) 17 gm PO DAILYP PRN PRN Reason: Constipation Senna (Sennosides 1 Tablet) 2 tab PO HS [facility] Last Admin: 09/11/21 21:23 Dose: 2 tab Documented by: Sodium Biphosphate/Sodium Phosphate (Fleets Adult Enema) 1 dose [place] Q3-4DAYS PRN PRN Reason: Constipation Sodium Chloride (0.9 % Sodium Chloride 10 Ml Syringe) 10 ml IV Q8 [facility] Last Admin: 09/12/21 05:03 Dose: 10 ml Documented by: Throat Lozenges (Benzocaine/Menthol 1 Lozenge) 1 lozenge PO PRN PRN PRN Reason: Sore Throat Zolpidem Tartrate (Zolpidem 5 Mg Tablet) 5 mg PO HSP PRN PRN Reason: Insomnia Last Admin: 09/11/21 21:27 Dose: 5 mg Documented by: A/P Narrative A/P Narrative: Patient seen and examined this am. Awake, alert, conversant, seated at bedside. Has some expected post-op discomfort but feels it is well managed on current regimen. Dressing at [facility] is clean dry and intact. Both lower extremities are warm, well perfused and neuro intact, with intact ankle flex/ extension. Swelling in right knee much improved today. Endorses occasional ambulation about the room and w/ PT. WB as tolerated w/ walker for assistance. PT/OT pain control Plan is for expected discharge to SNF for recovery and follow up at [facility] in 10-14 days Patient is stable from orthopedic standpoint, will defer final dispo to attending hospitalist. Time Spent With Patient Time: Total time spent is greater than 50% in coordination of care (as documented) at patient's floor/unit and/or counseling patient:
[2021-09-12 06:49] LABS: Hematocrit 30.6 % (40.1-51.0); Hemoglobin 10.3 g/dL (13.7-17.5)
[2021-09-12] MEDS: DOCUSATE SODIUM 100 MG CAPSULE PO SCH (08:00)
[2021-09-12] MEDS: ASPIRIN 81 MG TAB.CHEW PO SCH (08:00)
[2021-09-12] MEDS: oxyCODONE/APAP 5/325MG TABLET PO PRN (08:01)
[2021-09-12] MEDS: NICOTINE 21 MG PATCH TOPICAL SCH (08:01)
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
== END 2021-09-12 13:45 | DRG 481 ==
LOC: ED 11:43 → MEDSUR 15:24
PROVIDERS: ADMIT Internal Medicine; ATTEND Internal Medicine